=== PATIENT | female | born 1990 | race Two or more races ===

== ENCOUNTER 2018-05-15 02:54 | Emergency (ER) | payer MEDICAID ==
--- NOTE | 2018-05-15 06:56 | ED Physician Chart ---
ED Chief Complaint/HPI - Patient Information Date Seen:: 05/15/18 Time Seen:: 03:00 Chief Complaint:: COUGH History of Present Illness:: 27 YR OLD GIRL WITH COUGH NO FEVER NO CONGESTION NO CP NO DIZZINESS Allergies:: Allergies Allergy/AdvReac Type Severity Reaction Status Date / Time dextromethorphan Allergy Verified 05/15/18 03:21 Vitals:: Vital Signs - 8 hr 05/15/18 05/15/18 03:00 03:15 Temp 98.4 F 98.3 F HR 82 83 RR 19 18 BP 132/94 130/78 O2 Sat % 98 98 Historian:: Patient ED Review of Systems - Review of Systems General/Constitutional: No fever, No chills, No weight loss, No weakness, No diaphoresis, No edema, No loss of appetite Skin: No skin lesions, No rash, No bruising Head: No headache, No light-headedness Eyes: No loss of vision, No pain, No diplopia ENT: No earache, No nasal drainage, No sore throat, No tinnitus Neck: No neck pain, No swelling, No thyromegaly, No stiffness, No mass noted Cardio Vascular: No chest pain, No palpitations, No PND, No orthopnea, No edema Pulmonary: No SOB, No cough, No sputum, No wheezing GI: No nausea, No vomiting, No diarrhea, No pain, No melena, No hematochezia, No constipation, No hematemesis G/U: No dysuria, No frequency, No hematuria Musculoskeletal: No bone or joint pain, No back pain, No muscle pain Endocrine: No polyuria, No polydipsia Psychiatric: No prior psych history, No depression, No anxiety, No suicidal ideation Hematopoietic: No bruising, No lymphadenopathy Allergic/Immuno: No urticaria, No angioedema Neurological: No syncope, No focal symptoms, No weakness, No paresthesia, No headache, No seizure, No dizziness, No confusion, No vertigo ED Past Medical History - Past Medical History Past Medical History: No significant medical hx Family Medical History - Family Member Mother History Unknown: Yes ED Physical Exam - Physical Examination General/Constitutional: Awake, Well-developed, well-nourished, Alert, No distress, GCS 15, Non-toxic appearing, Ambulatory Head: Atraumatic Eyes: Lids, conjuctiva normal, PERRL, EOMI Skin: Nl inspection, No rash, No skin lesions, No ecchymosis, Well hydrated, No lymphadenopathy ENMT: External ears, nose nl, Nasal exam nl, Lips, teeth, gums nl Neck: Nontender, Full ROM w/o pain, No JVD, No nuchal rigidity, No bruit, No mass, No stridor Respiratory: Nl effort/Exclusion, Clear to Auscultation, No Wheeze/Rhonchi/Rales Cardio Vascular: RRR, No murmur, gallop, rubs, NL S1 S2 GI: No tenderness/rebounding/guarding, No organomegaly, No hernia, Normal BS's, Nondistended, No mass/bruits, No McBurney tenderness : No CVA tenderness Extremities: No tenderness or effusion, Full ROM, normal strength in all extremities, No edema, Normal digits & nails Neuro/Psych: Alert/oriented, DTR's symmetric, Normal sensory exam, Normal motor strength, Judgement/insight normal, Mood normal, Normal gait, No focal deficits Misc: Normal back, No paraspinal tenderness ED Assessment - Assessment General Assessment: COUGH ED Septic Shock - . Is Septic Shock (SBP<90, OR Lactate>4 mmol\L) present?: No - <6hrs of presentation: Vital Signs: Vital Signs - 8 hr 05/15/18 05/15/18 03:00 03:15 Temp 98.4 F 98.3 F HR 82 83 RR 19 18 BP 132/94 130/78 O2 Sat % 98 98 ED Reassessment (Disposition) - Reassessment Reassessment Condition:: Improved - Diagnosis Diagnosis:: COUGH - Aftercare/Follow up Instructions Medication Prescribed:: PHENERGAN WITH CODEINE AND AMOX - Patient Disposition Discharge/Transfer:: Home Condition at Disposition:: Stable ED Discharge Plan - Patient Disposition Admit/Discharge/Transfer: PT DISCHARGED HOME Condition at Disposition: Stable Instructions: Bronchitis, [id number] Additional Instructions: MAKE A FOLLOW UP WITH PRIMARY MEDICAL DOCTOR KRAIG, COMPLY WITH PRESCRIBED MEDICATION, GO BACK TO EMERGENCY ROOM IF SYMPTOMS WORSEN.
== END 2018-05-15 03:40 | disposition home or self-care (01) ==
LOC: ER 02:54
DX: R05 Cough (principal); Z88.5 Allergy status to narcotic agent
CPT/HCPCS: Z7502